=== PATIENT | male | born 1950 | race Caucasian/White ===

== ENCOUNTER 2019-12-01 08:31 | Outpatient (CLI) | payer MEDICARE ==
--- NOTE | 2019-12-01 09:34 | MRI ---
MR the lumbar spine without contrast: 12/01/2019 History: Low back pain radiating down the left leg, lumbar radiculopathy COMPARISON: 05/20/2015 TECHNIQUE: Multiplanar multisequence MR images were obtained of lumbar spine without IV contrast FINDINGS: On the basis of 5 lumbar type vertebral bodies, conus medullaris terminates at [id number] level. Sagittal STIR imaging demonstrates no focal area of osseous marrow edema. T12-L1:There is disc space narrowing and anterior osteophyte formation with mild disc bulge and mild bilateral facet hypertrophy. No significant central canal or neural foraminal stenosis L1-2:There is disc space narrowing with disc desiccation, anterior osteophyte formation, and disc bul ge. Bilateral facet hypertrophy. Mild central canal stenosis, slightly worsened. Mild bilateral neural foraminal stenosis, stable. L2-3:There is disc space narrowing with disc desiccation and disc bulge, similar when compared to the prior exam. There is a superimposed small left paracentral disc protrusion which is less evident than on the prior study. There is stable prominent bilateral facet hypertrophy, left greater than rig ht. There is moderate central canal stenosis/left lateral recess stenosis. Central canal and left lateral recess stenosis has improved when compared to the prior exam. Moderate left and mild right ne ural foraminal stenosis. L3-4:Bilateral facet hypertrophy. Disc space narrowing with disc desiccation and mild disc bulge. Ant erior osteophyte formation. Stable mild central canal stenosis. Stable moderate bilateral facet hypertrophy with mild left and mo derate right neural foraminal stenosis. L4-5:There is disc space narrowing with disc desiccation and disc bulge. There is severe central sherry l stenosis, worsened since prior study. Prominent bilateral facet hypertrophy and hypertrophy of ligamentum flavum, right greater than left. Moderate left and severe right neural foraminal stenosis, similar when compared to prior imaging. L5-S1:There is bilateral facet hypertrophy. There is disc space narrowing with disc desiccation and m ild disc bulge. Mild central canal stenosis/right lateral recess stenosis, slightly worsened. Severe right and moderate left neural foraminal stenosis, slightly worsened since the prior exam. Image retroperitoneal structures demonstrateno acute findings. IMPRESSION: Prominent multilevel lumbar spine degenerative change, worsened since the prior study as detailed abo ve.
== END 2019-12-01 08:32 | disposition home or self-care (01) ==
LOC: SCSMRI 08:31
PROVIDERS: ATTEND Physical Medicine & Rehabilitation
DX: M54.5 Low back pain (principal); M79.662 Pain in left lower leg; M47.816 Spondylosis without myelopathy or radiculopathy, lumbar region; M47.817 Spondylosis without myelopathy or radiculopathy, lumbosacral region
CPT/HCPCS: 72148

== ENCOUNTER 2020-03-22 05:33 | Day surgery (SDC) | payer MEDICARE ==
[2020-03-18 13:34] VITALS: BMI 35.9
[2020-03-22] MEDS ORDERED: Betamet Acet/Betamet Na Ph 30 MG/5 ML VIAL ONE (06:16)
[2020-03-22] MEDS ORDERED: Bupivacaine PF 0.5% 30 ML VIAL ONE (06:16)
[2020-03-22] MEDS ORDERED: Sodium Chloride 0.9% 10 ML ONE (06:17)
[2020-03-22] MEDS ORDERED: Bacitracin Zinc Ointment 30 gm TUBE ONE (06:17)
[2020-03-22] MEDS ORDERED: Ketorolac Tromethamine 30 MG/ML VIAL ONE (08:43)
--- NOTE | 2020-03-22 10:42 | OP ---
DATE OF PROCEDURE: 03/22/2020 ANESTHESIA: General LMA technique, augmented by total of 30 mL of 0.5% Marcaine, 10 given at each site prior to procedure and then another 5 at each site after wounds were closed. PREOPERATIVE DIAGNOSES: 1. Right carpal tunnel syndrome. 2. Right foreign body. POSTOPERATIVE DIAGNOSES: 1. Right carpal tunnel syndrome with median nerve flattening in the center portion of canal for almost 15 mm without stippling. 2. Very tight transverse carpal ligament. 3. We felt just simple foreign body, the patient actually had a 3.2 cm rock-brown mass with serous fluid inside surrounding the metallic foreign body, which was about 1 cm x 3 mm in size. TOURNIQUET TIME: 18 minutes. SPECIMEN SENT: 3.2 cm granuloma with foreign body inside. ESTIMATED BLOOD LOSS: 10 mL. DESCRIPTION OF PROCEDURE: After successful general LMA technique, the limb was prepped and draped. We outlined incision based on where the mass and the central and distal thenar region were located and also the standard 2.5 cm carpal tunnel incision. We then gave him the subcutaneous injection of Marcaine as described above, exsanguinated the limb, inflated the tourniquet to 250 mmHg pressure. We approached in a zigzag fashion the mass, initially making approximately a 15 mm incision, but when we saw the it was adherent to the deep fascia, we extended the incision to make it approximately 3 cm. At this point, we could dissect on both sides of the mass and doing this with a combination of tenotomy scissors and a right angle clamp, we were able to removed the deep portion of mass which was on the back wall of the thenar muscle and fascia as well as overlying the common digital nerve to the radial side of the thumb as well as ulnar side of the index finger. Then, once we did this, we gently lifted the mass out, noted there was some fluid inside and it deflated somewhat. There was no gross infection. We took radiographs with the mass separately and with the mass next to the small finger, but out of the patient's hand to demonstrate the foreign body of metallic nature was still inside the mass. We irrigated the area, and then packed it with moist Ray-Isai. We then made a standard incision for carpal tunnel release, beginning 5 mm distal to the volar wrist flexion crease and coursed into a combination of Godfrey cardinal line and the ring finger central tip. Once we carried this through skin and subcutaneous tissue, these identified the transverse carpal ligament, and at a point where the transverse carpal ligament was crossed over by the insertion of the palmaris, we made our initial incision at midportion of transverse carpal ligament. We carried this until we could see the tendon underneath and then began dissecting in a sharp and blunt manner using a combination of tenotomy scissors as well as a [place] blade to release the canal distally under direct visualization. We reversed this field of view and did the same thing using the same instrumentation technique from the midportion proximally. Now, the median nerve was completely free. We noted there was minimal classic stippling, but there was marked amount of compression seen over 1 cm area essentially under the transverse carpal ligament We then released the tourniquet, placed 3 mL of Celestone in the carpal tunnel release site and 2 in the foreign body removal site. The visualized digital nerves were intact from the distal end of the transverse carpal ligament. The patient then left the operating room with the tourniquet deflated, hemostasis obtained, and wound closed with interrupted 4-0 nylon in mattress pattern and no evidence of anesthetic or operative complication with pink digits. Job ID: [id number]
[2020-03-22] MEDS ORDERED: PROPOFOL 200 MG/20 ML VIAL ONE (11:01)
[2020-03-22] MEDS ORDERED: Ondansetron PF 4 MG/2 ML Vial ONE (11:01)
--- NOTE | 2020-03-22 11:12 | RAD ---
XR Hand Rt 3 View STANDARD History: Foreign body removal right hand Comparison: Radiograph January 11, 2020 Findings: Foreign body is removed on the final fluoroscopic image. Impression: Fluoroscopy for surgical purposes.
== END 2020-03-22 09:45 | disposition home or self-care (01) ==
LOC: SDC 05:33
PROVIDERS: ATTEND Orthopaedic Surgery Hand Surgery
PROC: 01N50ZZ Release Median Nerve, Open Approach (ICD-10-PCS; principal; 2020-03-22)
PROC: 0KCC0ZZ Extirpation of Matter from Right Hand Muscle, Open Approach (ICD-10-PCS; 2020-03-22)
DX: G56.01 Carpal tunnel syndrome, right upper limb (principal); M60.241 Foreign body granuloma of soft tissue, not elsewhere classified, right hand; I10 Essential (primary) hypertension; E78.00 Pure hypercholesterolemia, unspecified; Z87.891 Personal history of nicotine dependence; Z18.10 Retained metal fragments, unspecified; Z79.82 Long term (current) use of aspirin; Z79.899 Other long term (current) drug therapy; Z88.5 Allergy status to narcotic agent; Z88.8 Allergy status to other drugs, medicaments and biological substances
CPT/HCPCS: 76000; 88304; J0690; J0702; J1642; J1885; J2405; J2704; J3490; S0020